=== PATIENT | male | born 1980 | race Caucasian/White ===

== ENCOUNTER 2017-09-25 16:38 | Emergency (ER) | payer SELFPAY ==
[~2017-09-25] VITALS: Ht 177.8 cm; Wt 81.6 kg
[2017-09-25 16:40] VITALS: BP 110/74
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
--- NOTE | 2017-09-25 18:00 | NUR ---
PT FINISHED CT. BACK TO HIS ROOM. MOM CAME TO SEE PT. BEDSIDE WITH PT. WAITING FOR MD TO REVIEW CT REPORT.
--- NOTE | 2017-09-25 18:08 | NUR ---
Garret lau in [facility] - 09/25/17 at 1808 by [facility] PT MILLIE
[2017-09-25 19:40] VITALS: BP 105/69
--- NOTE | 2017-09-25 19:40 | NUR ---
Patient discharged with v/s stable. Written and verbal after care instructions given and explained. Patient alert, oriented and verbalized understanding of instructions. Ambulatory with steady gait. All questions addressed prior to discharge. ID band removed. Patient advised to follow up with PMD. Rx of MOTRIN, AND AFRIN 0.05% NASAL SPRAY given. Patient educated on indication of medication including possible reaction and side effects. Opportunity to ask questions provided and answered.
== END 2017-09-25 19:40 | disposition home or self-care (01) ==
LOC: MED 16:38
DX: S02.2XXA Fracture of nasal bones, initial encounter for closed fracture (principal); S01.112A Laceration without foreign body of left eyelid and periocular area, initial encounter; F17.210 Nicotine dependence, cigarettes, uncomplicated; Y04.2XXA Assault by strike against or bumped into by another person, initial encounter; Y93.89 Activity, other specified; Y92.89 Other specified places as the place of occurrence of the external cause; Y99.8 Other external cause status
CPT/HCPCS: 70450; 70486; 99284